=== PATIENT | female | born 1965 | race Caucasian/White ===

== ENCOUNTER → 2016-03-30 | Outpatient (REF) | payer BC | LOC: M SFHCWAGY 15:33 | PROVIDERS: ATTEND Nurse Practitioner Women's Health | DX: R87.810 Cervical high risk human papillomavirus (HPV) DNA test positive (principal) ==

== ENCOUNTER → 2016-04-24 | Outpatient (CLI) | payer BC ==
[2016-04-24 08:24] LABS: BASO % 0.8 % (0.0-1.0); EOS # 0.1 K/mm3 (0.0-0.50); EOS % 2.4 % (0.0-3.0); LARGE UNSTAINED CELL # 0.1 K/mm3 (0.0-0.4); LARGE UNSTAINED CELL % 1.2 % (0.0-4.0); LYMPH # 1.5 K/mm3 (1.5-4.5); LYMPH % 26.7 % (24.0-44.0); MEAN CORPUSCULAR HEMOGLOBIN 30.9 pg (27.0-33.0); MEAN CORPUSCULAR HGB CONC 34.2 g/dl (32.0-36.5); MEAN CORPUSCULAR VOLUME 90.4 fl (80.0-96.0); MONO # 0.3 K/mm3 (0.0-0.8); MONO % 5.3 % (0.0-5.0); NEUTROPHILS # 3.4 K/mm3 (1.8-7.7); NEUTROPHILS % 63.5 % (36.0-66.0); PLATELET COUNT, AUTOMATED 417 k/mm3 (150-450); RED CELL DISTRIBUTION WIDTH 12.1 % (11.5-14.5); WHITE BLOOD COUNT 5.4 K/mm3 (4.0-10.0)
[2016-04-24 09:01] LABS: ALBUMIN 3.6 GM/DL (3.2-5.2); ALBUMIN/GLOBULIN RATIO 1.13 (1.00-1.93); ALKALINE PHOSPHATASE 51 U/L (45-117); ALT/SGPT 16 U/L (12-78); ANION GAP 10 MEQ/L (8-16); AST/SGOT 10 U/L (15-37); BILIRUBIN,TOTAL 0.4 MG/DL (0.2-1.0); BLOOD UREA NITROGEN 12 MG/DL (7-18); CALCIUM LEVEL 8.8 MG/DL (8.5-10.1); CARBON DIOXIDE LEVEL 25 MEQ/L (21-32); CHLORIDE LEVEL 104 MEQ/L (98-107); CHOLESTEROL LEVEL 245 MG/DL (<200); CREATININE FOR GFR 0.83 MG/DL (0.55-1.02); GLOMERULAR FILTRATION RATE > 60.0 (>51); GLUCOSE, FASTING 107 MG/DL (70-105); SODIUM LEVEL 139 MEQ/L (136-145); TOTAL PROTEIN 6.8 GM/DL (6.4-8.2); TRIGLYCERIDES LEVEL 61 MG/DL (<150)
== END ==
LOC: M LAB 07:57
PROVIDERS: ATTEND Physician Assistant
DX: F33.1 Major depressive disorder, recurrent, moderate (principal)

== ENCOUNTER → 2016-04-30 | Outpatient (REF) | payer BC | LOC: M LAB REF 16:48 | PROVIDERS: ATTEND Obstetrics & Gynecology | DX: N87.9 Dysplasia of cervix uteri, unspecified (principal) ==

== ENCOUNTER → 2016-09-03 | Outpatient (REF) | payer BC | LOC: M WUC 12:35 | PROVIDERS: ATTEND Physician Assistant | DX: N39.0 Urinary tract infection, site not specified (principal) ==

== ENCOUNTER → 2016-10-24 | Outpatient (CLI) | payer BC | LOC: M WUC 13:26 | PROVIDERS: ATTEND Physician Assistant Medical | DX: Z02.1 Encounter for pre-employment examination (principal) ==

== ENCOUNTER → 2017-02-05 | Outpatient (CLI) | payer BC ==
--- NOTE | 2017-02-05 16:47 | REPMRS ---
Patient History The patient states she had a clinical breast exam in 01/2017. Family history of pancreatic cancer in father at age 80 and breast cancer in maternal grandmother under age 50. Taking hormonal contraceptives for 13 years. Digital Woman Screen Mammo: February 05, 2017 - Exam #: [id number] Bilateral CC and MLO view(s) were taken. Technologist: Bella Medellin Technologist Prior study comparison: February 06, 2016, digital woman screen mammo performed at [facility]. February 04, 2015, digital woman screen mammo performed at [facility]. February 02, 2014, digital woman screen mammo performed at [facility]. FINDINGS: There are scattered fibroglandular densities. There has been no change in the appearance of the mammogram from the prior studies. There is a mild amount of residual fibroglandular tissue which is fairly symmetric. There is no interval development of dominant mass, architectural distortion, or clustered microcalcification suggestive of malignancy. Scattered lymph nodes are seen in the axillae. There are scattered, small, benign calcifications of doubtful clinical significance. No significant changes when compared with prior studies. ASSESSMENT: BI-RADS/ACR category 2 mammogram. Benign finding(s). Recommendation Routine screening mammogram in 1 year (for women over age 40). This mammogram was interpreted with the aid of an FDA-approved computer-aided dectection system. A. Negative x-ray reports should not delay biopsy if a dominant or clinically suspicious mass is present. B. Four to eight percent of cancers are not identified by mammography. C. Adenosis and dense breast may obscure an underlying neoplasm. Electronically Signed By: Hernan Balderas MD 02/05/17 1236
== END ==
LOC: M WHC 14:36
PROVIDERS: ATTEND Nurse Practitioner Family
DX: Z12.31 Encounter for screening mammogram for malignant neoplasm of breast (principal)

== ENCOUNTER → 2017-02-05 | Outpatient (REF) | payer BC | LOC: M SFHCWAGY 15:46 | PROVIDERS: ATTEND Nurse Practitioner Family | DX: Z12.4 Encounter for screening for malignant neoplasm of cervix (principal); R87.612 Low grade squamous intraepithelial lesion on cytologic smear of cervix (LGSIL) ==

== ENCOUNTER 2017-07-23 08:26 | Day surgery (SDC) | payer BC ==
[2017-07-23] MEDS ORDERED: LIDOCAINE 1% MDV 20ML VIAL SQ (08:45)
[2017-07-23 09:05] LABS: HEMATOCRIT 39.6 % (36.0-47.0); HEMOGLOBIN 13.1 g/dl (12.0-15.5); MEAN CORPUSCULAR HEMOGLOBIN 29.9 pg (27.0-33.0); MEAN CORPUSCULAR HGB CONC 33.1 g/dl (32.0-36.5); MEAN CORPUSCULAR VOLUME 90.4 fl (80.0-96.0); PLATELET COUNT, AUTOMATED 425 10^3/uL (150-450); RED BLOOD COUNT 4.38 10^6/uL (4.00-5.40); RED CELL DISTRIBUTION WIDTH 12.2 % (11.5-14.5); WHITE BLOOD COUNT 6.2 10^3/uL (4.0-10.0)
[2017-07-23] MEDS ORDERED: dexameTHASONE 4 MG/ML 1ML VIAL (J1100) As Ordered (09:09)
[2017-07-23] MEDS ORDERED: ROCURONIUM BROMIDE 50 MG/5 ML VIAL As Ordered (09:09)
[2017-07-23] MEDS ORDERED: PROPOFOL 200 MG/20 ML VIAL As Ordered (09:09)
[2017-07-23] MEDS ORDERED: LIDOCAINE 2% INJ 100 MG/5 ML SDV (FOR ANES.) As Ordered (09:09)
[2017-07-23] MEDS ORDERED: ONDANSETRON 4MG/2ML VIAL (J2405) As Ordered (09:09)
[2017-07-23] MEDS ORDERED: MIDAZOLAM INJ 2 MG/2 ML VIAL (J2250) As Ordered (09:10)
[2017-07-23] MEDS ORDERED: fentaNYL 250 MCG/5 ML INJECTION (J3010) As Ordered (09:10)
[2017-07-23 09:21] LABS: CONTROL LINE HCG INT CTR LINE PRESENT; HCG, SERUM QUALITATIVE NEGATIVE (NEGATIVE)
[2017-07-23] MEDS: LR 1,000 ML IV ×4 (09:29→20:09)
[2017-07-23] MEDS ORDERED: HYDROmorphone HCL 2 MG/ML 1ML VIAL (J1170) As Ordered (12:04)
[2017-07-23] MEDS ORDERED: KETOROLAC 60 MG/2 ML VIAL (J1885) As Ordered (12:05)
[2017-07-23] MEDS ORDERED: NEOSTIGMINE 10 MG/10 ML VIAL (J2710) As Ordered (12:05)
[2017-07-23] MEDS ORDERED: GLYCOPYRROLATE INJ 0.2 MG/ML 2 ML VIAL As Ordered ×2 (12:06)
[2017-07-23] MEDS: BUPIVACAINE HCL 0.25% 30 ML VIAL As Ordered (13:00)
[2017-07-23] MEDS ORDERED: KETOROLAC 30 MG/ML VIAL (J1885) IV (13:45)
[2017-07-23] MEDS ORDERED: MEPERIDINE INJ 25 MG/ML VIAL (J2175) IV (13:45)
[2017-07-23] MEDS ORDERED: fentaNYL 100 MCG/2 ML INJECTION (J3010) IV (13:45)
[2017-07-23] MEDS: PERCOCET 5MG/325MG TAB PO ×3 (13:48→21:15)
[2017-07-23] MEDS: ONDANSETRON 4MG/2ML VIAL (J2405) IV (13:48)
[2017-07-23] MEDS: METOCLOPRAMIDE INJ 10MG/2ML VIAL (J2765) IV (14:03)
[2017-07-23] MEDS ORDERED: PROMETHAZINE INJ 25 MG/ML VIAL (J2550) IV (14:15)
[2017-07-23] MEDS ORDERED: MORPHINE 4 MG/ML 1ML VIAL/SYRINGE (J2270) IV (14:15)
[2017-07-23] MEDS ORDERED: zolPIDEM TARTRATE 10MG TAB PO (14:15)
[2017-07-23] MEDS ORDERED: PERCOCET 5MG/325MG TAB PO (14:15)
[2017-07-23] MEDS: KETOROLAC 30 MG/ML VIAL (J1885) IV (18:08)
== END 2017-07-23 21:30 | disposition home or self-care (01) ==
LOC: M SDC 08:26 → M MS5PR 14:25 → M SDC 21:30
DX: N80.0 Endometriosis of uterus (principal); G47.30 Sleep apnea, unspecified; F32.9 Major depressive disorder, single episode, unspecified
CPT/HCPCS: 58571

== ENCOUNTER → 2018-02-08 | Outpatient (CLI) | payer BC | LOC: M WHC 15:01 | DX: Z12.31 Encounter for screening mammogram for malignant neoplasm of breast (principal); Z78.0 Asymptomatic menopausal state; Z92.0 Personal history of contraception; Z80.3 Family history of malignant neoplasm of breast | CPT/HCPCS: 77067 ==

== ENCOUNTER → 2018-07-28 | Outpatient (CLI) | payer BC ==
[~2018-07-28] MED LIST: BUPR150T3 PO; CELE1CAP4 PO; CITA20TA7 PO; D 50CAP PO; HM V5000 PO; PANT40TA3 PO; PERCOCET PO; RANI150T PO; VITA500046 PO; VITA500T PO; VITAE20CA PO; WELL100T2 PO; [UNRECOGNIZED DRUG - OTHER] SL; birth control pill PO
[2018-07-28 09:07] LABS: BASO # 0.1 10^3/uL (0.0-0.2); BASO % 1.2 % (0.0-1.0); EOS # 0.1 10^3/uL (0.0-0.50); HEMATOCRIT 37.7 % (36.0-47.0); HEMOGLOBIN 12.3 g/dl (12.0-15.5); LYMPH # 1.8 10^3/uL (1.5-4.5); LYMPH % 34.9 % (24.0-44.0); MEAN CORPUSCULAR HEMOGLOBIN 30.4 pg (27.0-33.0); MEAN CORPUSCULAR HGB CONC 32.6 g/dl (32.0-36.5); MEAN CORPUSCULAR VOLUME 93.3 fl (80.0-96.0); MONO # 0.5 10^3/uL (0.0-0.8); MONO % 9.8 % (0.0-5.0); NEUTROPHILS # 2.6 10^3/uL (1.8-7.7); NEUTROPHILS % 51.9 % (36.0-66.0); PLATELET COUNT, AUTOMATED 399 10^3/uL (150-450); RED BLOOD COUNT 4.04 10^6/uL (4.00-5.40)
[2018-07-28 09:33] LABS: BLOOD UREA NITROGEN 17 MG/DL (7-18); CALCIUM LEVEL 9.5 MG/DL (8.5-10.1); CARBON DIOXIDE LEVEL 27 MEQ/L (21-32); CHLORIDE LEVEL 105 MEQ/L (98-107); CREATININE FOR GFR 0.73 MG/DL (0.55-1.30); GLOMERULAR FILTRATION RATE > 60.0 (>51); GLUCOSE, FASTING 106 MG/DL (70-100); POTASSIUM SERUM 4.1 MEQ/L (3.5-5.1); SODIUM LEVEL 140 MEQ/L (136-145)
--- NOTE | 2018-07-28 21:59 | ECGEPIP ---
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 No prior ECG available for comparison at the time of interpretation. Electronically Signed on 07-28-2018 21:58:39 EDT by Talib Toure
== END ==
LOC: M LAB 08:11
PROVIDERS: ATTEND Physician Assistant
DX: M21.622 Bunionette of left foot (principal); M79.672 Pain in left foot

== ENCOUNTER 2018-08-05 07:09 | Day surgery (SDC) | payer BC ==
[~2018-08-05] VITALS: Ht 160 cm; Wt 69.8 kg
[~2018-08-05 07:09] MED LIST changes: +LR 1,000 ML IV ONE
[2018-08-05] MEDS ORDERED: PROPOFOL 200 MG/20 ML VIAL As Ordered ONE ×4 (07:56→13:27)
[2018-08-05] MEDS ORDERED: LIDOCAINE 2% INJ 100 MG/5 ML SDV (FOR ANES.) As Ordered ONE (07:56)
[2018-08-05] MEDS ORDERED: fentaNYL 100 MCG/2 ML INJECTION (J3010) As Ordered ONE (07:58)
[2018-08-05] MEDS ORDERED: MIDAZOLAM INJ 2 MG/2 ML VIAL (J2250) As Ordered ONE (07:58)
[2018-08-05] MEDS ORDERED: dexameTHASONE 4 MG/ML 1ML VIAL (J1100) As Ordered ONE (08:39)
[2018-08-05] MEDS ORDERED: LIDOCAINE 2% MDV 20 ML VIAL As Ordered ONE (08:40)
[2018-08-05] MEDS ORDERED: BACITRACIN PWD 50,000 UNITS VIAL As Ordered ONE (08:40)
[2018-08-05] MEDS ORDERED: BUPIVACAINE HCL 0.5% 30 ML VIAL As Ordered ONE (08:40)
[2018-08-05] MEDS ORDERED: NEOSPORIN GU IRRIG 20 ML VIAL As Ordered ONE (08:40)
[2018-08-05] MEDS ORDERED: KETOROLAC 60 MG/2 ML VIAL (J1885) As Ordered ONE (11:56)
[2018-08-05] MEDS ORDERED: ONDANSETRON 4MG/2ML VIAL (J2405) As Ordered ONE (11:56)
[2018-08-05] MEDS ORDERED: ONDANSETRON 4MG/2ML VIAL (J2405) IV PRN (14:15)
[2018-08-05] MEDS ORDERED: PERCOCET 5MG/325MG TAB PO PRN (14:15)
[2018-08-05 14:20] VITALS: BP 112/56
--- NOTE | 2018-08-05 16:30 | REP ---
REASON: Postop bunionectomy. COMPARISON: None. There is overlying casting/bandage material obscuring the bony detail. The rotation osteotomy site 5th metatarsal noted . Alignment is near anatomical. Fixation of the first tarsal metatarsal joint noted with internal fixation plate and screws in place. Alignment is anatomical. IMPRESSION:As above. Electronically Signed by Uriel Donald DO 08/05/2018 04:48 P
--- NOTE | 2018-08-07 09:38 | RO ---
DATE OF PROCEDURE: 08/05/2018 PREPROCEDURE DIAGNOSES: 1. Hallux valgus deformity left foot 2. Bunion deformity left foot. POSTPROCEDURE DIAGNOSES: 1. Hallux valgus deformity left foot 2. Bunion deformity left foot. PROCEDURE: Tailor's bunionectomy with 5th metatarsal osteotomy left foot SURGEON: Dr. Ousmane Upton. WIND OPERATIONS SUPERVISOR: None. ANESTHESIA: Local MAC IRRIGATION: Dilute bacitracin, neomycin, polymyxin B solution. HARDWARE UTILIZED: Arthrex Lapidis Plate size standard with nonlocking screws 3.5 x 14 mm times three and a 3.5 x 16 mm times one, two cannulated headless screws 2.5 x 16 mm times two. HEMOSTASIS: Ankle pneumatic tourniquet at 20 mmHg for 89 minutes. ESTIMATED BLOOD LOSS: 1 mL. DESCRIPTION OF PROCEDURE: On 08/05/2018, this 53-year-old female was taken from her hospital room to the operating room and placed on the operating table in supine position. Following the induction of IV sedation and local and regional anesthesia, the left lower extremity was prepped and draped in the usual aseptic manner. An ankle pneumatic tourniquet was rapidly inflated to 200 mmHg, sterile draping was completed and the following procedure was performed: LAPIDIS BUNIONECTOMY WITH PLATE AND SCREW FIXATION, LEFT FOOT: Attention was directed to the patient's left foot where and incision was made just proximal to the 1st metatarsal cuneiform joint extending past the metatarsophalangeal joint, exiting proximal to the interphalangeal joint. The incision was deepened through the subcutaneous tissue and all coursing venous tributaries were identified, underscored, clamped, cut, ligated and electrocoagulated as necessary. Linear capsulotomy was performed in the same plane as the original skin incision. The capsular and periosteal structures were the dissection free in one cutaneous layer, dorsal to mediolateral thus creating a capsular periosteal type envelope. This lead into view the hypertrophied medial eminence of the 1st metatarsal which was osteotomized from dorsal to proximal through and through. Attention was directed to the 1st intermetatarsal space where the conjoined tendon was sharply dissected free from the fibular sesamoid. Attention was then directed into the base of the 1st metatarsal cuneiform joint where utilizing a periosteal elevator, exposure was obtained to the first metatarsal cuneiform joint and the extensor tendon was retracted in a lateral direction. Utilizing a power saw an osteotomy was performed through the 1st metatarsal perpendicular to the long axis and just cutting through the articular cartilage. This was then removed. Attention was then directed and a small wedge of bone was removed from the base of the medial cuneiform from dorsal to planar through and through. Utilizing a rongeur osteotome and curet, the remaining joint surfaces were removed drilled with a 2 mm drill. This was to promote union. The wound was then flushed with copious amounts of dilute bacitracin, neomycin, polymyxin B solution. The 1st metatarsal was then reduced and screw was then placed from the 1st metatarsal into the medial cuneiform. This was a 4.0 compression screw measuring approximately 38 mm. This was then tightened forming good compression of the 1st metatarsal cuneiform joint. A size standard Lapidus Plate was then applied to the medial surface and this was then fixated to the bone utilizing 3.5 mm nonlocking screws, three 14s and one 16 across the cuneiform and first metatarsal. Intraoperative C-arm imagery revealed good coaptation of the fusion site and good fixation. The wound was then flushed with copious amounts of dilute bacitracin, neomycin, polymyxin B solution. Attention was directed to the 5th metatarsal area where the following procedure was performed: TAILOR'S BUNIONECTOMY WITH LUDLOFF OSTEOTOMY AND INTERNAL SCREW FIXATION: Attention was directed to the patient's 5th metatarsal area where an incision was made from the distal aspect of the metatarsal to approximately three quarters of the length of the shaft of the 5th metatarsal. The incision was then deepened to the subcutaneous tissues. All coursing venous tributaries were electrocoagulated as encountered utilizing a elevator. The bone was exposed along the shaft from the lateral eminence to the proximal diaphyseal junction. A Ludloff osteotomy was then performed, orientated from a distal planar to proximal dorsal orientation. K-wire was then entered proximally and this osteotomy was then pivoted along the proximal site to parallel to the 4th metatarsal and then fixated with a 2.5 x 16 mm screw. Additional fixation was then noted distally and this measured a 16 mm in length as well. The screws were slightly long to ensure penetration of the planar cortex. The redundant ledge was then rongeured smooth. The wound was then again flushed with copious amounts of dilute bacitracin, neomycin and polymyxin B solution and the capsular structures were then coapted and maintained with #2-0 Monocryl in a simple interrupted type fashion. Subcutaneous tissue was coapted and maintained using #4-0 Monocryl in a simple interrupted type fashion. Skin incisions were coapted and maintained utilizing #4-0 Prolene in a simple interrupted and horizontal mattress type fashion. Attention was then directed towards bandaging where a dry sterile compressive bandage was applied consisting of Adaptic 4 x 4s, 4 x 4 splints and Camilla. Upon release of the tourniquet instantaneous capillary filling time was noted to digits 1-5 of the patient's left foot. A well-molded fiberglass cast was then applied to the patient's left extremity. The patient having apparently tolerated the surgical procedure well was taken from the operating room (OR) to the recovery room for further monitoring by the anesthesia department. Postoperative instructions given upon discharge. LUCIANO
== END 2018-08-05 14:46 | disposition home or self-care (01) ==
LOC: M SDC 07:09
PROVIDERS: ATTEND Podiatrist
DX: M20.12 Hallux valgus (acquired), left foot (principal); M21.622 Bunionette of left foot; M79.672 Pain in left foot; K21.9 Gastro-esophageal reflux disease without esophagitis; G47.30 Sleep apnea, unspecified; Z87.891 Personal history of nicotine dependence; Z79.899 Other long term (current) drug therapy
CPT/HCPCS: 28110; 28297; 73630; 88300; C1713; J0690; J1100; J1885; J2250; J2405; J3010

== ENCOUNTER 2018-12-14 07:31 | Day surgery (SDC) | payer BC ==
[~2018-12-14] VITALS: Ht 154.9 cm; Wt 68.9 kg
[~2018-12-14 07:31] MED LIST changes: -LR 1,000 ML IV ONE; +NS 1,000 ML IV ONE
[2018-12-14] MEDS ORDERED: LIDOCAINE 2% INJ 100 MG/5 ML SDV (FOR ANES.) As Ordered ONE (07:46)
[2018-12-14] MEDS ORDERED: PROPOFOL 200 MG/20 ML VIAL As Ordered ONE (07:46)
[2018-12-14] MEDS ORDERED: GLYCOPYRROLATE INJ 0.2 MG/ML 2 ML VIAL As Ordered ONE (09:00)
--- NOTE | 2018-12-14 09:07 | ROOR ---
Patient Name: Brooklyn Anglin Procedure Date: 12/14/2018 8:46 AM Date of : 1965 Age: 53 Room: [facility] Gender: Female Note Status: Finalized Procedure: Colonoscopy Indications: Screening for colorectal malignant neoplasm Providers: DO Flora Bryant MD: SILVIO POOLE Requesting Provider: Medicines: Propofol per Anesthesia Complications: No immediate complications. Procedure: Pre-Anesthesia Assessment: - Prior to the procedure, a History and Physical was performed, and patient medications and allergies were reviewed. The patient is competent. The risks and benefits of the procedure and the sedation options and risks were discussed with the patient. All questions were answered and informed consent was obtained. Patient identification and proposed procedure were verified by the physician, the nurse, the anesthesiologist and the metrology technician in the endoscopy suite. Mental Status Examination: alert and oriented. Airway Examination: normal oropharyngeal airway and neck mobility. Respiratory Examination: clear to auscultation. CV Examination: normal. Prophylactic Antibiotics: The patient does not require prophylactic antibiotics. Prior Anticoagulants: The patient has taken no previous anticoagulant or antiplatelet agents. ASA Grade Assessment: II - A patient with mild systemic disease. After reviewing the risks and benefits, the patient was deemed in satisfactory condition to undergo the procedure. The anesthesia plan was to use monitored anesthesia care (MAC). Immediately prior to administration of medications, the patient was re-assessed for adequacy to receive sedatives. The heart rate, respiratory rate, oxygen saturations, blood pressure, adequacy of pulmonary ventilation, and response to care were monitored throughout the procedure. The physical status of the patient was re-assessed after the procedure. The Colonoscope was introduced through the anus and advanced to the cecum, identified by appendiceal orifice and ileocecal valve. The colonoscopy was performed without difficulty. The patient tolerated the procedure well. Findings: Non-bleeding internal hemorrhoids were found during retroflexion. The hemorrhoids were small and Grade I (internal hemorrhoids that do not prolapse). The exam was otherwise without abnormality on direct and retroflexion views. Impression: - Non-bleeding internal hemorrhoids. - The examination was otherwise normal on direct and retroflexion views. - No specimens collected. Recommendation: - Patient has a contact number available for emergencies. The signs and symptoms of potential delayed complications were discussed with the patient. Return to normal activities tomorrow. Written discharge instructions were provided to the patient. - Repeat colonoscopy in 5-10 years for screening purposes. - Return to my office PRN. Stefan Zurita DO 12/14/2018 9:07:05 AM Electronically signed by Stefan Zurita DO Number of Addenda: 0 Note Initiated On: 12/14/2018 8:46 AM Estimated Blood Loss: Estimated blood loss: none.
[2018-12-14 09:25] VITALS: BP 136/76
== END 2018-12-14 10:04 | disposition home or self-care (01) ==
LOC: M OPP 07:31
PROVIDERS: ATTEND Surgery
DX: Z12.11 Encounter for screening for malignant neoplasm of colon (principal); K64.0 First degree hemorrhoids; G47.30 Sleep apnea, unspecified; R12 Heartburn; F32.9 Major depressive disorder, single episode, unspecified; F41.9 Anxiety disorder, unspecified; Z87.891 Personal history of nicotine dependence; Z79.899 Other long term (current) drug therapy

== ENCOUNTER → 2019-02-14 | Outpatient (CLI) | payer BC ==
[~2019-02-14] MED LIST changes: -NS 1,000 ML IV ONE
--- NOTE | 2019-02-15 09:19 | REPMRS ---
Patient History The patient states she had a clinical breast exam in 2018. Family history of breast cancer under age 50 in maternal grandmother, pancreatic cancer at age 80 in father. Took hormonal contraceptives for 13 years. Digital Woman Screen Mammo: February 14, 2019 - Exam #: [id number] Bilateral CC and MLO view(s) were taken. Technologist: Aleena Schmitt, Technologist Prior study comparison: February 08, 2018, bilateral digital woman screen mammo performed at [facility] [place]. February 05, 2017, digital woman screen mammo performed at [facility] [place]. February 06, 2016, digital woman screen mammo performed at [facility]. FINDINGS: The breast tissue is heterogeneously dense. This may lower the sensitivity of mammography. There is a moderate amount of heterogeneously dense fibroglandular tissue which is fairly symmetric. There is no interval development of dominant mass, architectural distortion, or grouped microcalcification typical of malignancy. There has been no change in the appearance of the mammogram from the prior studies. 3-D tomosynthesis shows no additional findings. Assessment: BI-RADS/ACR category 1 mammogram. Negative Mammogram. Recommendation Routine screening mammogram of both breasts in 1 year (for women over age 40). This patient's Lifetime Breast Cancer RIsk is estimated at 15.2 %. This mammogram was interpreted with the aid of an FDA-approved computer-aided dectection system. Electronically Signed By: Hernán Sanchez MD 02/15/19 0929
== END ==
LOC: M WHC 15:07
PROVIDERS: ATTEND Nurse Practitioner Family
DX: Z12.31 Encounter for screening mammogram for malignant neoplasm of breast (principal); Z80.3 Family history of malignant neoplasm of breast; Z80.0 Family history of malignant neoplasm of digestive organs

== ENCOUNTER → 2019-02-28 | Outpatient (CLI) | payer BC ==
[~2019-02-28] MED LIST changes: +AMOX875T PO; +VITA500079 PO
[2019-02-28 10:27] LABS: BASO # 0.1 10^3/uL (0.0-0.2); BASO % 1.1 % (0.0-1.0); EOS # 0.2 10^3/uL (0.0-0.5); EOS % 2.9 % (0.0-3.0); HEMATOCRIT 36.4 % (36.0-47.0); HEMOGLOBIN 11.6 g/dl (12.0-15.5); LYMPH # 2.2 10^3/uL (1.5-5.0); MEAN CORPUSCULAR HGB CONC 31.9 g/dl (32.0-36.5); MEAN CORPUSCULAR VOLUME 94.1 fl (80.0-96.0); MONO # 0.4 10^3/uL (0.0-0.8); MONO % 6.3 % (0.0-5.0); NEUTROPHILS # 3.4 10^3/uL (1.5-8.5); NEUTROPHILS % 54.5 % (36.0-66.0); PLATELET COUNT, AUTOMATED 397 10^3/uL (150-450); RED BLOOD COUNT 3.87 10^6/uL (4.00-5.40); WHITE BLOOD COUNT 6.2 10^3/uL (4.0-10.0)
[2019-02-28 10:48] LABS: BLOOD UREA NITROGEN 18 MG/DL (7-18); CALCIUM LEVEL 9.2 MG/DL (8.5-10.1); CARBON DIOXIDE LEVEL 23 MEQ/L (21-32); CHLORIDE LEVEL 106 MEQ/L (98-107); CREATININE FOR GFR 0.81 MG/DL (0.55-1.30); GLOMERULAR FILTRATION RATE > 60.0 (>51); GLUCOSE, FASTING 96 MG/DL (70-100); POTASSIUM SERUM 4.1 MEQ/L (3.5-5.1); SODIUM LEVEL 138 MEQ/L (136-145)
--- NOTE | 2019-03-02 07:35 | ECGEPIP ---
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
== END ==
LOC: M LAB 09:49
PROVIDERS: ATTEND Podiatrist
DX: Z01.818 Encounter for other preprocedural examination (principal); Z01.810 Encounter for preprocedural cardiovascular examination; R00.1 Bradycardia, unspecified; M79.672 Pain in left foot; T84.293S Other mechanical complication of internal fixation device of bones of foot and toes, sequela

== ENCOUNTER 2019-03-10 11:46 | Day surgery (SDC) | payer BC ==
[~2019-03-10] VITALS: Ht 154.9 cm; Wt 72.1 kg
[~2019-03-10 11:46] MED LIST changes: +LR 1,000 ML IV ONE; +ceFAZolin SOD 2 GM in IV 1 EA IV ONE
[2019-03-10] MEDS ORDERED: MIDAZOLAM INJ 2 MG/2 ML VIAL (J2250) As Ordered ONE (16:29)
[2019-03-10] MEDS ORDERED: dexameTHASONE 4 MG/ML 1ML VIAL (J1100) As Ordered ONE (16:29)
[2019-03-10] MEDS ORDERED: LIDOCAINE 2% MDV 20 ML VIAL As Ordered ONE (16:29)
[2019-03-10] MEDS ORDERED: LIDOCAINE 2% INJ 100 MG/5 ML SDV (FOR ANES.) As Ordered ONE (16:29)
[2019-03-10] MEDS ORDERED: propofoL 200 MG/20 ML VIAL As Ordered ONE (16:29)
[2019-03-10] MEDS ORDERED: BUPIVACAINE HCL 0.5% 30 ML VIAL As Ordered ONE (16:30)
[2019-03-10] MEDS ORDERED: fentaNYL 100 MCG/2 ML INJECTION (J3010) As Ordered ONE (16:30)
[2019-03-10] MEDS ORDERED: NEOSPORIN GU IRRIG 20 ML VIAL As Ordered ONE (16:30)
[2019-03-10] MEDS ORDERED: PHENYLephrine HCL 500 MCG/5 ML (100MCG/ML) SYRINGE (J2370) As Ordered ONE (17:44)
[2019-03-10] MEDS: BACITRACIN PWD 50,000 UNITS VIAL As Ordered ONE (17:47)
[2019-03-10] MEDS ORDERED: PERCOCET 5MG/325MG TAB As Ordered ONE (19:15)
[2019-03-10] MEDS ORDERED: ONDANSETRON 4MG/2ML VIAL (J2405) IV PRN (19:30)
[2019-03-10] MEDS ORDERED: METOCLOPRAMIDE INJ 10MG/2ML VIAL (J2765) IV PRN (19:30)
[2019-03-10] MEDS ORDERED: LR 1,000 ML IV SCH (19:30)
[2019-03-10] MEDS ORDERED: PERCOCET 5MG/325MG TAB PO PRN (19:30)
[2019-03-10 19:50] VITALS: BP 121/58
--- NOTE | 2019-03-13 08:29 | RO ---
DATE OF OPERATION: 03/10/2019 PREOPERATIVE DIAGNOSES: Painful plate first metatarsal, left foot. Painful screws fifth metatarsal, left foot. POSTOPERATIVE DIAGNOSES: Painful plate first metatarsal, left foot. Painful screws fifth metatarsal, left foot. PROCEDURE: Removal of hardware First and Fifth metatarsal left foot. SURGEON: WILLA Tyler ASSISTANT: None. ANESTHESIA: Local MAC HEMOSTASIS: Ankle pneumatic tourniquet at 200 mmHg for 57 minutes, left ankle. DESCRIPTION OF OPERATION: On 03/10/2019, this 54-year-old white female was taken from her hospital room to the operating room, placed on the operating room table in supine position. Following the induction of IV sedation, local and regional anesthesia, the left lower extremity was prepped and draped in the usual aseptic manner. Attention was directed to the patient's left foot where there was noted to be a linear cicatrix over the first metatarsal cuneiform joint. At this time, a 6 cm incision was placed over this area and dissection was carried down. All coursing venous tributaries were identified underscored, clamped, cut and electrocoagulated as necessary. The extensor tendon was left medial to the incision. Utilizing a periosteal elevator and scalpel, the periosteum was reflected off the plate on the medial surface of the first metatarsal cuneiform joint and this was removed with removing of the screws. The interfrag screw was also removed, however there was some bony overgrowth and utilizing an osteotome and mallet this area had to be reduced so the head of the screw was fully seen and this was removed. The wound was flushed with dilute bacitracin, neomycin and polymyxin B solution. Attention was directed towards closure where the periosteal structures were coapted and maintained utilizing #3-0 Dexon in a simple interrupted type fashion. The subcutaneous tissues were coapted and maintained utilizing #4-0 Monocryl in a simple interrupted type fashion. Skin incisions were coapted and maintained using #4-0 Prolene in a simple interrupted type fashion. Attention was then directed to the patient's fifth metatarsal area where the following procedure was performed: REMOVAL OF SCREWS, FIFTH METATARSAL, LEFT FOOT: A 4 cm incision was placed on the lateral surface of the foot utilizing a previous cicatrix and incision was carried down onto the fifth metatarsal area. A headed screw was visualized in the distal aspect of the fifth metatarsal. This was freed from the surrounding periosteum and removed. However, to find the proximal screw C-arm imagery had to be utilized since it was a headless screw, which was buried under the metatarsal. The area where the screw appeared to be located was then curetted out with a curette exposing the screw head. This was then removed and the wound was flushed with copious amounts of dilute bacitracin, neomycin and polymyxin B solution. Periosteal structures were coapted and maintained utilizing #4-0 Vicryl in a simple interrupted type fashion. The subcutaneous tissue were coapted and maintained using #4-0 Monocryl in a simple interrupted type fashion. Skin incision was coapted and maintained utilizing #4-0 Prolene in a simple interrupted type fashion. Following the completion of the surgical procedure, 4 mg of dexamethasone sodium phosphorous was instilled proximal to the surgical site and attention was directed towards bandaging where a sterile compressive bandage was applied consisting of Adaptic, 4 x 4's, 4 x 4 splints, Camilla, Kerlix and Coban. Ankle pneumatic tourniquet was rapidly deflated and instantaneous capillary refilling time was noted to digits one through five of the patient's left foot. The patient having apparently tolerated the surgical procedure well, was taken from the OR to the recovery room for further monitoring by the anesthesia department. Postop instructions will be given upon discharge. LUCIANO
== END 2019-03-10 19:50 | disposition home or self-care (01) ==
LOC: M SDC 11:46
PROVIDERS: ATTEND Podiatrist
DX: T84.84XA Pain due to internal orthopedic prosthetic devices, implants and grafts, initial encounter (principal); Y79.2 Prosthetic and other implants, materials and accessory orthopedic devices associated with adverse incidents; M79.672 Pain in left foot; K21.9 Gastro-esophageal reflux disease without esophagitis; F32.9 Major depressive disorder, single episode, unspecified; G47.33 Obstructive sleep apnea (adult) (pediatric); R01.1 Cardiac murmur, unspecified; M19.90 Unspecified osteoarthritis, unspecified site; Z79.899 Other long term (current) drug therapy; Z79.891 Long term (current) use of opiate analgesic
CPT/HCPCS: 20680; J0690; J1100; J2250; J2370; J3010

== ENCOUNTER → 2020-02-19 | Outpatient (CLI) | payer BC ==
[~2020-02-19] MED LIST changes: -LR 1,000 ML IV ONE; +PANT40TA29 PO; -PANT40TA3 PO; +VITA-243 PO; -VITA500T PO; -ceFAZolin SOD 2 GM in IV 1 EA IV ONE
--- NOTE | 2020-02-19 16:14 | REPMRS ---
Patient History The patient states she had a clinical breast exam in 01/2020 Family history of breast cancer under age 50 in maternal grandmother, pancreatic cancer at age 80 in father. Took hormonal contraceptives for 13 years. 3D TOMOSYNTHESIS WAS PERFORMED. The Camron Cedillo lifetime risk for breast cancer is 14.9%. Volpara breast density b. Digital Woman Screen Mammo: February 19, 2020 - Exam #: [id number] Bilateral CC and MLO view(s) were taken. Technologist: Nancy Rodríguez, Technologist Prior study comparison: February 14, 2019, bilateral digital woman screen mammo performed at [facility]. February 08, 2018, bilateral digital woman screen mammo performed at [facility]. FINDINGS: There are scattered fibroglandular densities. There has been no change in the appearance of the mammogram from the prior studies. There is a mild amount of residual fibroglandular tissue which is fairly symmetric. There is no interval development of dominant mass, architectural distortion, or clustered microcalcification suggestive of malignancy. Assessment: BI-RADS/ACR category 1 mammogram. Negative Mammogram. Recommendation Routine screening mammogram in 1 year (for women over age 40). This mammogram was interpreted with the aid of an FDA-approved computer-aided dectection system. Electronically Signed By: Stefan Negron MD 02/19/20 [id number]
== END ==
LOC: M WHC 14:57
PROVIDERS: ATTEND Nurse Practitioner Family
DX: Z12.31 Encounter for screening mammogram for malignant neoplasm of breast (principal); Z80.3 Family history of malignant neoplasm of breast; Z92.0 Personal history of contraception

== ENCOUNTER → 2020-04-18 | Outpatient (CLI) | payer BC ==
[~2020-04-18] MED LIST changes: -BUPR150T3 PO; +BUPR150T4 PO
--- NOTE | 2020-04-18 18:21 | REP ---
INDICATION: LOW BACK PAIN SCIATICA LEFT SIDE COMPARISON: None. TECHNIQUE: AP and frog-lateral views of the left hip FINDINGS: Generalized age-related changes include subtle increased sclerosis to the acetabulum with minimal joint space narrowing. No further overt osteoarthritic or significant degenerative changes are appreciated. No evidence for acute or healed injury. Surrounding soft tissues are normal. IMPRESSION: Mild generalized age-related changes. <Electronically signed by Gucci Gallagher > 04/18/20 [id number]
--- NOTE | 2020-04-18 18:43 | REP ---
INDICATION: LOW BACK PAIN SCIATICA LEFT SIDE. COMPARISON: None. TECHNIQUE: Single AP view of the pelvis FINDINGS: No acute or healed injury. Hip joints demonstrate mild age-related changes including subtle increased sclerosis to the acetabular roof with minimal joint space narrowing. Surrounding soft tissues are unremarkable. IMPRESSION: Relatively age-appropriate examination of the pelvis/hips. <Electronically signed by Gucci Gallagher > 04/18/20 [id number]
== END ==
LOC: M RAD 16:06
PROVIDERS: ATTEND Physician Assistant
DX: M54.32 Sciatica, left side (principal); M25.552 Pain in left hip

== ENCOUNTER → 2020-05-03 | Outpatient (CLI) | payer BC ==
[~2020-05-03] MED LIST changes: +BUPR150T12 PO; -BUPR150T4 PO
--- NOTE | 2020-05-03 12:01 | REP ---
INDICATION: LOW BACK PAIN COMPARISON: None. TECHNIQUE: AP, lateral, bilateral oblique, and coned-down views of the lumbar spine. FINDINGS: Alignment and lordosis maintained. Vertebral bodies are intact. No acute fracture/compression injury or subluxation. No obvious spondylolysis. Mild degenerative changes include endplate sclerosis with minimal disc space narrowing and facet hypertrophy primarily involving L3-4, L4-5 and L5-S1. IMPRESSION: Mild multilevel degenerative changes. No acute fracture/compression injury or subluxation. If the patient remains symptomatic consider MRI for further investigation. <Electronically signed by Gucci Gallagher > 05/03/20 [id number]
== END ==
LOC: M WUC 11:42
PROVIDERS: ATTEND Physician Assistant
DX: M51.36 Other intervertebral disc degeneration, lumbar region (principal); M51.37 Other intervertebral disc degeneration, lumbosacral region

== ENCOUNTER → 2020-12-26 | Outpatient (REF) | payer BC ==
[2020-12-26 17:27] LABS: BASO # 0.1 10^3/uL (0.0-0.2); EOS # 0.1 10^3/uL (0.0-0.5); EOS % 1.5 % (0.0-3.0); HEMATOCRIT 37.4 % (36.0-47.0); HEMOGLOBIN 12.2 g/dl (12.0-15.5); LYMPH # 2.1 10^3/uL (1.5-5.0); MEAN CORPUSCULAR HEMOGLOBIN 30.1 pg (27.0-33.0); MEAN CORPUSCULAR HGB CONC 32.6 g/dl (32.0-36.5); MEAN CORPUSCULAR VOLUME 92.3 fl (80.0-96.0); MONO # 0.5 10^3/uL (0.0-0.8); NEUTROPHILS % 58.2 % (36.0-66.0); PLATELET COUNT, AUTOMATED 396 10^3/uL (150-450); RED BLOOD COUNT 4.05 10^6/uL (4.00-5.40); WHITE BLOOD COUNT 6.8 10^3/uL (4.0-10.0)
[2020-12-26 18:04] LABS: ALT/SGPT 25 U/L (12-78); BILIRUBIN,TOTAL 0.4 MG/DL (0.2-1.0); BLOOD UREA NITROGEN 17 MG/DL (7-18); CALCIUM LEVEL 9.4 MG/DL (8.5-10.1); CARBON DIOXIDE LEVEL 27 MEQ/L (21-32); CHLORIDE LEVEL 105 MEQ/L (98-107); CHOLESTEROL LEVEL 190 MG/DL (<200); CHOLESTEROL RISK RATIO 1.844 (<5); CREATININE FOR GFR 0.88 MG/DL (0.55-1.30); GLOMERULAR FILTRATION RATE > 60.0 (>51); GLUCOSE, FASTING 104 MG/DL (70-100); HDL CHOLESTEROL 103 MG/DL (>40); LDL CHOLESTEROL 80 MG/DL (<100); NON-HDL-C 87 MG/DL; POTASSIUM SERUM 4.4 MEQ/L (3.5-5.1); SODIUM LEVEL 140 MEQ/L (136-145); THYROID STIMULATING HORMONE 0.976 uIU/ML (0.358-3.740); TOTAL PROTEIN 7.2 GM/DL (6.4-8.2); TRIGLYCERIDES LEVEL 36 MG/DL (<150)
== END ==
LOC: M LAB REF 16:51
PROVIDERS: ATTEND Physician Assistant
DX: E78.5 Hyperlipidemia, unspecified (principal)

== ENCOUNTER → 2021-07-31 | Outpatient (CLI) | payer BC | LOC: M WHC 14:25 | PROVIDERS: ATTEND Specialist | DX: Z12.31 Encounter for screening mammogram for malignant neoplasm of breast (principal); Z80.3 Family history of malignant neoplasm of breast; Z80.0 Family history of malignant neoplasm of digestive organs ==

== ENCOUNTER → 2021-10-23 | Outpatient (REF) | LOC: M LABSMTC 09:27 | PROVIDERS: ATTEND Family Medicine | DX: Z20.822 Contact with and (suspected) exposure to COVID-19 (principal) ==

== ENCOUNTER → 2022-02-26 | Outpatient (REF) ==
[2022-02-26 14:37] LABS: RSV AMPLIFICATION NEGATIVE (NEGATIVE)
== END ==
LOC: M EMP 12:41
PROVIDERS: ATTEND Family Medicine
DX: Z20.818 Contact with and (suspected) exposure to other bacterial communicable diseases (principal)

== ENCOUNTER → 2022-08-19 | Outpatient (CLI) | payer BC ==
[2022-08-19 10:53] LABS: HEMATOCRIT 36.7 % (36.0-47.0); HEMOGLOBIN 11.9 g/dl (12.0-15.5); MEAN CORPUSCULAR HEMOGLOBIN 31.4 pg (27.0-33.0); MEAN CORPUSCULAR HGB CONC 32.4 g/dl (32.0-36.5); MEAN CORPUSCULAR VOLUME 96.8 fl (80.0-96.0); PLATELET COUNT, AUTOMATED 341 10^3/uL (150-450); RED BLOOD COUNT 3.79 10^6/uL (4.00-5.40); WHITE BLOOD COUNT 6.1 10^3/uL (4.0-10.0)
[2022-08-19 11:24] LABS: ALKALINE PHOSPHATASE 45 U/L (46-116); ALT/SGPT 22 U/L (7.0-40); AST/SGOT 15 U/L (<34); BILIRUBIN,TOTAL 0.5 MG/DL (0.3-1.2); BLOOD UREA NITROGEN 15 MG/DL (9-23); CALCIUM LEVEL 8.8 MG/DL (8.5-10.1); CARBON DIOXIDE LEVEL 26 MMOL/L (20-31); CHLORIDE LEVEL 106 MMOL/L (98-107); CHOLESTEROL LEVEL 168 MG/DL (<200); CHOLESTEROL RISK RATIO 1.92 (<5); GLOMERULAR FILTRATION RATE > 60.0 (>51); GLUCOSE, FASTING 96 MG/DL (60-100); HDL CHOLESTEROL 87.2 MG/DL (>40); NON-HDL-C 80.8 MG/DL; POTASSIUM SERUM 4.3 MMOL/L (3.5-5.1); SODIUM LEVEL 139 MMOL/L (136-145); TOTAL PROTEIN 6.5 G/DL (5.7-8.2); TRIGLYCERIDES LEVEL 34 MG/DL (<150)
[2022-08-19 11:30] LABS: THYROID STIMULATING HORMONE 1.085 uIU/ML (0.55-4.78)
== END ==
LOC: M LAB 10:11
PROVIDERS: ATTEND Physician Assistant
DX: E78.5 Hyperlipidemia, unspecified (principal)

== ENCOUNTER → 2023-06-29 | Outpatient (CLI) | payer BC | LOC: M WHC 12:56 | PROVIDERS: ATTEND Specialist | DX: Z12.31 Encounter for screening mammogram for malignant neoplasm of breast (principal); R92.323 Mammographic fibroglandular density, bilateral breasts ==

== ENCOUNTER → 2023-06-29 | Outpatient (REF) | payer BC | LOC: M SFHCWAGY 15:02 | PROVIDERS: ATTEND Specialist | DX: Z12.4 Encounter for screening for malignant neoplasm of cervix (principal); Z77.9 Other contact with and (suspected) exposures hazardous to health; R87.612 Low grade squamous intraepithelial lesion on cytologic smear of cervix (LGSIL) | CPT/HCPCS: 87624; G0123 ==

== ENCOUNTER 2024-03-30 08:49 | Day surgery (SDC) | payer BC ==
[~2024-03-30] VITALS: Ht 154.9 cm; Wt 70.5 kg
[~2024-03-30 08:49] MED LIST changes: +ATOR1TAB21 PO; +BIOT1CAP2 PO; +LEVO25TA5 PO; +MAGN400C PO; +MIDAZOLAM INJ 2MG/2ML VIAL As Ordered ONE; +NOXI1TAB PO; +PHENYLEPHRINE 10% OPHTH SOL 5ML OS PRN; +TRAZ-189 PO
[2024-03-30] MEDS: PHENYLEPHRINE 2.5% OPHTH SOL 2ML OS SCH (10:14)
[2024-03-30] MEDS: LIDOCAINE 3.5 % 1ML OPHTH TOPICAL GEL OU ONE (10:14)
[2024-03-30] MEDS: CYCLOPENTOLATE 1% OPHTH SOLN 2ML BTL OS SCH (10:14)
[2024-03-30] MEDS: TROPICAMIDE 1% OPHTH SOLN 15ML OS SCH (10:14)
[2024-03-30] MEDS: OFLOXACIN 0.3 % (OCUFLOX) OPTH SOL 5ML OS ONE (10:14)
[2024-03-30] MEDS: LIDOCAINE 1% SDV 5ML VIAL As Ordered ONE (10:55)
[2024-03-30] MEDS: BSS IRRIG/VANCO(10MG)/TOBRA(5MG)/EPINEPH(1:1000-0.5CC)500ML BAG-ORONLY As Ordered ONE (10:55)
[2024-03-30] MEDS: CEFUROXIME 1MG/0.1ML INTRACAMERAL INJ As Ordered ONE (10:55)
[2024-03-30 11:09] VITALS: BP 108/52; TEMP 97.2; O2SAT 98
== END 2024-03-30 11:26 | disposition home or self-care (01) ==
LOC: M SDC 08:49
PROVIDERS: ATTEND Ophthalmology
DX: H25.12 Age-related nuclear cataract, left eye (principal); E03.9 Hypothyroidism, unspecified; K21.9 Gastro-esophageal reflux disease without esophagitis; G47.33 Obstructive sleep apnea (adult) (pediatric); Z79.899 Other long term (current) drug therapy
CPT/HCPCS: 66984; J0697; J2250; V2632

== ENCOUNTER 2024-04-20 11:44 | Day surgery (SDC) | payer BC ==
[~2024-04-20] VITALS: Ht 154.9 cm; Wt 70.3 kg
[~2024-04-20 11:44] MED LIST changes: +CYCLOPENTOLATE 1% OPHTH SOLN 2ML BTL OD SCH; +LIDOCAINE 2% 100MG/5ML SDV (FOR ANES.) As Ordered ONE; -MIDAZOLAM INJ 2MG/2ML VIAL As Ordered ONE; +PHENYLEPHRINE 10% OPHTH SOL 5ML OD PRN; -PHENYLEPHRINE 10% OPHTH SOL 5ML OS PRN; +PHENYLEPHRINE 2.5% OPHTH SOL 2ML OD SCH; +TROPICAMIDE 1% OPHTH SOLN 15ML OD SCH; +propofoL 200 MG/20 ML VIAL As Ordered ONE
[2024-04-20] MEDS: LIDOCAINE 3.5 % 1ML OPHTH TOPICAL GEL OU ONE ×2 (12:14→12:16)
[2024-04-20] MEDS: OFLOXACIN 0.3 % (OCUFLOX) OPTH SOL 5ML OD ONE ×2 (12:14→12:16)
[2024-04-20] MEDS: TROPICAMIDE 1% OPHTH SOLN 15ML OD SCH (12:18)
[2024-04-20] MEDS: PHENYLEPHRINE 2.5% OPHTH SOL 2ML OD SCH (12:18)
[2024-04-20] MEDS: CYCLOPENTOLATE 1% OPHTH SOLN 2ML BTL OD SCH (12:19)
[2024-04-20] MEDS: LIDOCAINE 1% SDV 5ML VIAL As Ordered ONE (13:09)
[2024-04-20] MEDS: CEFUROXIME 1MG/0.1ML INTRACAMERAL INJ As Ordered ONE (13:09)
[2024-04-20] MEDS: BSS IRRIG/VANCO(10MG)/TOBRA(5MG)/EPINEPH(1:1000-0.5CC)500ML BAG-ORONLY As Ordered ONE (13:10)
[2024-04-20] MEDS ORDERED: MIDAZOLAM INJ 2MG/2ML VIAL As Ordered ONE (13:12)
[2024-04-20] MEDS ORDERED: fentaNYL 100 MCG/2 ML INJECTION As Ordered ONE (13:13)
[2024-04-20 13:22] VITALS: BP 117/58; TEMP 97.6; O2SAT 97
== END 2024-04-20 13:35 | disposition home or self-care (01) ==
LOC: M SDC 11:44
PROVIDERS: ATTEND Ophthalmology
DX: H25.11 Age-related nuclear cataract, right eye (principal); E03.9 Hypothyroidism, unspecified; G47.30 Sleep apnea, unspecified; Z79.899 Other long term (current) drug therapy; Z79.890 Hormone replacement therapy; Z98.42 Cataract extraction status, left eye; Z90.710 Acquired absence of both cervix and uterus; Z90.49 Acquired absence of other specified parts of digestive tract
CPT/HCPCS: 66984; J0697; J2250; J3010; V2632

== ENCOUNTER → 2024-09-18 | Outpatient (CLI) | payer BC ==
[~2024-09-18] MED LIST changes: -CYCLOPENTOLATE 1% OPHTH SOLN 2ML BTL OD SCH; -LIDOCAINE 2% 100MG/5ML SDV (FOR ANES.) As Ordered ONE; -PHENYLEPHRINE 10% OPHTH SOL 5ML OD PRN; -PHENYLEPHRINE 2.5% OPHTH SOL 2ML OD SCH; -TROPICAMIDE 1% OPHTH SOLN 15ML OD SCH; -propofoL 200 MG/20 ML VIAL As Ordered ONE
== END ==
LOC: M WHC 14:10
PROVIDERS: ATTEND Specialist
DX: R92.323 Mammographic fibroglandular density, bilateral breasts (principal)

== ENCOUNTER → 2024-09-18 | Outpatient (REF) | payer BC | LOC: M SFHCWAGY 17:40 | PROVIDERS: ATTEND Specialist | DX: Z12.4 Encounter for screening for malignant neoplasm of cervix (principal); R87.612 Low grade squamous intraepithelial lesion on cytologic smear of cervix (LGSIL) | CPT/HCPCS: 87624; G0123 ==